=== PATIENT | female | born 1980 | race Caucasian/White ===

== ENCOUNTER 2021-01-23 13:22 | Inpatient (IN) | payer OTHER ==
[~2021-01-23] VITALS: Ht 165.1 cm; Wt 65.8 kg
[~2021-01-23 13:22] MED LIST: CEFUROXIME500 MG PO; COLACE 100MG C100 MG PO; DAILY VITE1 EACH PO; ESTRACE1 MG PO; IBUPROFEN600 MG PO; INDERAL TAB 2020 MG PO; LYSINE1000 MG PO; PERCOCET 5/325 T1 EA PO; TESSALON PERLE100 MG PO; VIBRAMYCIN100 MG PO; VITAMIN D 11000 UNIT PO; ZOFRAN ODT 4 MG4 MG PO; ZOFRAN ODT4 MG PO; ZOFRAN4 MG PO
[2021-01-23 14:30] LABS: HEMOGLOBIN 14.1 gm/dl (12.3-15.3); RED BLOOD COUNT 4.45 M/UL (4.00-5.10); WHITE BLOOD COUNT 17.6 K/UL (4.5-11.0)
[2021-01-23 14:50] LABS: BUN/CREATININE RATIO 11 (0-10)
[2021-01-23] MEDS ORDERED: PROZAC40 MG PO (17:01)
[2021-01-23] MEDS ORDERED: DAILY VALUE1 EACH PO (17:02)
[2021-01-23] MEDS ORDERED: TRICOR 145 MG145 MG PO (17:02)
[2021-01-23 22:27] LABS: ADENOVIRUS F 40/41 Not Detected (Negative); ASTROVIRUS Not Detected (Negative); CAMPYLOBACTER Not Detected (Negative); CRYPTOSPORIDIUM Not Detected (Negative); E.COLI 0157 Not Detected (Negative); ENTAMOEBA HISTOLYTICA Not Detected (Negative); ENTEROAGGREGATIVE E.COLI (EAEC Not Detected (Negative); ENTEROPATHOGENIC E.COLI (EPEC) Not Detected (Negative); ENTEROTOXIGENIC E.COLI (ETEC) Not Detected (Negative); GIARDIA LAMBLIA Not Detected (Negative); NOROVIRUS GI/GII Not Detected (Negative); PLESIOMONAS SHIGELLOIDES Not Detected (Negative); ROTOVIRUS A Not Detected (Negative); SALMONELLA Not Detected (Negative); SAPOVIRUS Not Detected (Negative); SHIG/ENTEROINVAS.ECOLI (EIEC) Not Detected (Negative); SHIGA-LIK TOX.PRO.E.COLI (STEC Not Detected (Negative); VIBRIO Not Detected (Negative); VIBRIO CHOLERAE Not Detected (Negative); YERSINIA ENTEROCOLITICA Not Detected (Negative)
[2021-01-24 03:02] LABS: WHITE BLOOD COUNT 14.1 K/UL (4.5-11.0)
[2021-01-24 03:10] LABS: RED BLOOD COUNT 3.86 M/UL (4.00-5.10)
[2021-01-24 03:32] LABS: BUN/CREATININE RATIO 8 (0-10)
[2021-01-24 08:18] LABS: CLOSTRIDIUM DIFFICILE TOX A/B DETECTED (Negative)
[2021-01-24] MEDS ORDERED: METHOCARBAMOL500 MG PO (13:31)
[2021-01-25 03:00] LABS: HEMOGLOBIN 11.4 gm/dl (12.3-15.3); RED BLOOD COUNT 3.69 M/UL (4.00-5.10)
[2021-01-25 03:03] LABS: WHITE BLOOD COUNT 8.7 K/UL (4.5-11.0)
[2021-01-25 03:22] LABS: BUN/CREATININE RATIO 5 (0-10)
[2021-01-26 09:11] LABS: HEMOGLOBIN 11.4 gm/dl (12.3-15.3); RED BLOOD COUNT 3.65 M/UL (4.00-5.10); WHITE BLOOD COUNT 7.3 K/UL (4.5-11.0)
[2021-01-26 09:35] LABS: BUN/CREATININE RATIO 4 (0-10)
[2021-01-27 03:42] LABS: HEMOGLOBIN 11.1 gm/dl (12.3-15.3); RED BLOOD COUNT 3.7 M/UL (4.00-5.10); WHITE BLOOD COUNT 8.2 K/UL (4.5-11.0)
[2021-01-27 03:54] LABS: BUN/CREATININE RATIO 3 (0-10)
[2021-01-27] MEDS ORDERED: SODIUM CL 0.91000 ML INJ (11:03)
[2021-01-27] MEDS ORDERED: VANCOMYCIN HCL250 MG PO (11:03)
[2021-01-27] MEDS ORDERED: ONDANSETRON4 MG/2 M2 IVP (11:03)
--- NOTE | 2021-01-27 15:31 | NUR ---
REPORT CALLED TO RECEIVING NURSE ROBERTO BOURGEOIS AT [facility] IN [place], [place].
== END 2021-01-27 19:07 | disposition short-term general hospital (02) | DRG 373 ==
LOC: ER1 13:22 → M/S 15:56 → CDU 15:56 → M/S 16:52
PROVIDERS: Internal Medicine; Physician Assistant; ADMIT Internal Medicine
DX: A04.72 Enterocolitis due to Clostridium difficile, not specified as recurrent (principal); E78.5 Hyperlipidemia, unspecified; F41.9 Anxiety disorder, unspecified; E87.6 Hypokalemia; Z20.822 Contact with and (suspected) exposure to COVID-19; F17.210 Nicotine dependence, cigarettes, uncomplicated; D64.9 Anemia, unspecified; I95.9 Hypotension, unspecified; Z90.710 Acquired absence of both cervix and uterus; Z90.49 Acquired absence of other specified parts of digestive tract
CPT/HCPCS: 36415; 80048; 80053; 81001; 83735; 84132; 84703; 85025; 85027; 86140; 87086; 87324; 87449; 87507; 96374; 96375; 99285; G0378; J1956; J2270; J2405; J2543; J7030; U0002

== ENCOUNTER 2022-04-06 16:21 | Emergency (ER) | payer OTHER ==
[~2022-04-06 16:21] MED LIST changes: +DAILY VALUE1 EACH PO; +METHOCARBAMOL500 MG PO; +ONDANSETRON4 MG/2 M2 IVP; +PROZAC40 MG PO; +SODIUM CL 0.91000 ML INJ; +TRICOR 145 MG145 MG PO; +VANCOMYCIN HCL250 MG PO
[2022-04-06 18:18] LABS: HEMOGLOBIN 14.8 gm/dl (12.3-15.3); RED BLOOD COUNT 4.55 M/UL (4.00-5.10); WHITE BLOOD COUNT 8.7 K/UL (4.5-11.0)
[2022-04-06 18:42] LABS: BUN/CREATININE RATIO 20 (0-10)
[2022-04-06] MEDS ORDERED: CARAFATE1 GM/10 ML PO (20:44)
[2022-04-06] MEDS ORDERED: ZOFRAN 4 MG TAB4 MG PO (20:44)
[2022-04-06] MEDS ORDERED: PROTONIX 40 MG40 M1 PO (20:44)
[2022-04-06] MEDS ORDERED: HYDROCODON-ACE1 EAC4 PO (20:44)
== END 2022-04-06 21:20 | disposition home or self-care (01) ==
LOC: ER1 16:21
PROVIDERS: Preventive Medicine Occupational Medicine
DX: K29.00 Acute gastritis without bleeding (principal); F17.210 Nicotine dependence, cigarettes, uncomplicated; Z20.822 Contact with and (suspected) exposure to COVID-19
CPT/HCPCS: 0240U; 80053; 81001; 83690; 85025; 85652; 86140; 96374; 96375; 96376; 99284; C9113; J1170; J2405; Q9967

== ENCOUNTER 2022-04-24 13:16 | Emergency (ER) | payer OTHER ==
[~2022-04-24 13:16] MED LIST changes: -PEPCID40 MG PO
[2022-04-24 14:28] LABS: HEMOGLOBIN 13.3 gm/dl (12.3-15.3); RED BLOOD COUNT 4.37 M/UL (4.00-5.10); WHITE BLOOD COUNT 7.7 K/UL (4.5-11.0)
[2022-04-24 14:39] LABS: BUN/CREATININE RATIO 10 (0-10)
[2022-04-24] MEDS ORDERED: ZOFRAN 4 MG TAB4 MG PO (15:29)
[2022-04-24] MEDS ORDERED: PEPCID40 MG PO (15:29)
== END 2022-04-24 16:50 | disposition home or self-care (01) ==
LOC: ER1 13:16
PROVIDERS: Emergency Medicine
DX: K29.80 Duodenitis without bleeding (principal); Z90.710 Acquired absence of both cervix and uterus; F17.200 Nicotine dependence, unspecified, uncomplicated
CPT/HCPCS: 80053; 83690; 85025; 96374; 96375; 99284; C9113; J2270; J2405

== ENCOUNTER → 2022-04-24 | Outpatient (CLI) | payer OTHER ==
[~2022-04-24] MED LIST changes: +CARAFATE1 GM/10 ML PO; +HYDROCODON-ACE1 EAC4 PO; +PEPCID40 MG PO; +PROTONIX 40 MG40 M1 PO; +ZOFRAN 4 MG TAB4 MG PO
== END ==
LOC: KOH-I 08:00
DX: R10.11 Right upper quadrant pain (principal); K76.0 Fatty (change of) liver, not elsewhere classified
CPT/HCPCS: 76705

== ENCOUNTER 2022-05-04 19:02 | Inpatient (IN) | payer OTHER ==
[~2022-05-04] VITALS: Ht 165.1 cm; Wt 64.0 kg
[~2022-05-04 19:02] MED LIST changes: +PEPCID40 MG PO
[2022-05-04 22:24] LABS: HEMOGLOBIN 14.5 gm/dl (12.3-15.3); RED BLOOD COUNT 4.55 M/UL (4.00-5.10); WHITE BLOOD COUNT 11.1 K/UL (4.5-11.0)
[2022-05-04 22:45] LABS: BUN/CREATININE RATIO 6 (0-10)
[2022-05-05] MEDS ORDERED: VANCOCIN 125 M125 MG PO (05:42)
[2022-05-05] MEDS ORDERED: PHENERGAN 25 MG25 M1 PO (05:42)
[2022-05-05] MEDS ORDERED: ICOSAPENT ETHYL1 GM PO (12:18)
[2022-05-05] MEDS ORDERED: ONDANSETRON HCL4 MG PO (12:18)
[2022-05-05] MEDS ORDERED: FAMOTIDINE40 MG PO (12:18)
[2022-05-05] MEDS ORDERED: CARAFATE1 GM/10 ML PO (12:19)
[2022-05-05] MEDS ORDERED: METRONIDAZOLE500 MG PO (12:20)
[2022-05-06 04:49] LABS: HEMOGLOBIN 12.5 gm/dl (12.3-15.3); RED BLOOD COUNT 3.92 M/UL (4.00-5.10); WHITE BLOOD COUNT 7.3 K/UL (4.5-11.0)
[2022-05-06 04:51] LABS: BUN/CREATININE RATIO 7 (0-10)
[2022-05-06] MEDS ORDERED: DIFICID 200 MG200 MG PO ×2 (09:05→16:05)
[2022-05-07 09:20] LABS: HEMOGLOBIN 12.5 gm/dl (12.3-15.3); RED BLOOD COUNT 3.91 M/UL (4.00-5.10); WHITE BLOOD COUNT 6.6 K/UL (4.5-11.0)
[2022-05-07 09:43] LABS: BUN/CREATININE RATIO 7 (0-10)
[2022-05-08 06:54] LABS: RED BLOOD COUNT 4.42 M/UL (4.00-5.10); WHITE BLOOD COUNT 6.6 K/UL (4.5-11.0)
[2022-05-08 07:15] LABS: BUN/CREATININE RATIO 8 (0-10)
[2022-05-08] MEDS ORDERED: DIFICID 200 MG200 MG PO (09:48)
== END 2022-05-10 10:59 | disposition home or self-care (01) | DRG 373 ==
LOC: ER1 19:02 → M/S 05-05 08:52 → CDU 05-05 08:52 → M/S 05-05 15:12
PROVIDERS: Physician Assistant; Physician Assistant Medical; ADMIT Internal Medicine
DX: A04.72 Enterocolitis due to Clostridium difficile, not specified as recurrent (principal); E78.5 Hyperlipidemia, unspecified; F17.210 Nicotine dependence, cigarettes, uncomplicated; D72.829 Elevated white blood cell count, unspecified; K59.00 Constipation, unspecified; Z96.0 Presence of urogenital implants; F41.9 Anxiety disorder, unspecified; F32.A Depression, unspecified; K21.9 Gastro-esophageal reflux disease without esophagitis; Z90.710 Acquired absence of both cervix and uterus; Z90.49 Acquired absence of other specified parts of digestive tract; Z83.3 Family history of diabetes mellitus; Z80.9 Family history of malignant neoplasm, unspecified
CPT/HCPCS: 36415; 80048; 80053; 81001; 83690; 83735; 85025; 85027; 87040; 87086; 96374; 96375; 96376; 99285; G0378; J2270; J2405; J2550; Q9967